=== PATIENT | female | born 1960 | race Caucasian/White ===

== ENCOUNTER → 2018-03-01 | Outpatient (CLI) | payer OTHER ==
[~2018-03-01] MED LIST: ? B/P MED; GLUCOPHAGE XR500 MG PO; IBUPROFEN 600600 M1 PO; IMITREX; INDERAL40 MG PO; NORCO 5-325 TA1 EACH PO; OMEPRAZOLE20 M2; PRISTIQ100 MG PO; VALIUM5 MG PO
== END ==
LOC: M.RAD 11:37
DX: S22.32XA Fracture of one rib, left side, initial encounter for closed fracture (principal); E11.9 Type 2 diabetes mellitus without complications; F32.9 Major depressive disorder, single episode, unspecified; I10 Essential (primary) hypertension; R07.81 Pleurodynia; X58.XXXA Exposure to other specified factors, initial encounter; Y93.89 Activity, other specified; Y92.89 Other specified places as the place of occurrence of the external cause; Y99.8 Other external cause status

== ENCOUNTER → 2019-04-27 | Outpatient (CLI) | payer OTHER | LOC: M.ULTRA 14:30 | DX: I82.811 Embolism and thrombosis of superficial veins of right lower extremity (principal) ==